=== PATIENT | male | born 1955 | race Two or more races ===

== ENCOUNTER 2021-02-22 11:36 | Emergency (ER) | payer MEDICAID, OTHER ==
[~2021-02-22] VITALS: Ht 175.3 cm; Wt 81.2 kg
[2021-02-22 12:49] VITALS: BP 125/66
== END 2021-02-22 12:57 | disposition home or self-care (01) ==
LOC: ER 11:36
DX: I10 Essential (primary) hypertension (principal); E11.9 Type 2 diabetes mellitus without complications; Z76.0 Encounter for issue of repeat prescription; Z95.5 Presence of coronary angioplasty implant and graft